=== PATIENT | female | born 1990 | race Hispanic/Latino ===

== ENCOUNTER 2019-09-23 02:32 | Inpatient (IN) | payer MEDICAID, OTHER ==
[~2019-09-23] VITALS: Ht 157.5 cm; Wt 93.4 kg
[2019-09-23] MEDS ORDERED: LACTATED RINGERS 1000ML 1,000 ML IV PRN (03:36)
[2019-09-23 03:43] VITALS: BP 122/85
[2019-09-23] MEDS ORDERED: PREN1TAB80 PO (03:43)
[2019-09-23 04:50] LABS: HEMATOCRIT 37.1 % (36-48); MEAN CORPUSCULAR HEMOGLOBIN 28.1 pg (27.0-33.0); MEAN CORPUSCULAR HGB CONC 33.6 g/dL (32.0-36.0); MEAN CORPUSCULAR VOLUME 83.6 fL (79-99); PLATELET COUNT (AUTO) 210 K/uL (130-400); RED BLOOD CELL COUNT(AUTO) 4.44 MIL/uL (4.00-5.50); RED CELL DISTRIBUTION WIDTH 15.2 % (11.0-15.5); WHITE BLOOD COUNT (AUTO) 8.8 K/uL (4.8-10.8)
[2019-09-23] MEDS ORDERED: OXYTOCIN 10 USP UNITS/ML 20 UNIT in LACTATED RINGERS 1000ML 1,000 ML IV SCH (05:00)
[2019-09-23] MEDS ORDERED: LACTATED RINGERS 1000ML 1,000 ML IV ONE (05:08)
[2019-09-23] MEDS ORDERED: OXYTOCIN-LR 20 UNITS/1000 ML 1,000 ML IV ONE ×2 (05:09→12:08)
[2019-09-23] MEDS ORDERED: LACTATED RINGERS 1000ML 1,000 ML IV SCH (09:30)
[2019-09-23] MEDS ORDERED: CEFAZOLIN SODIUM 1 GM VIAL IVP PRN (09:30)
[2019-09-23] MEDS ORDERED: DURAMORPH PF1 MG/ML 10ML AMP IV ONE (11:09)
[2019-09-23] MEDS ORDERED: FENTANYL CITRATE PF 50 MCG/1 ML 2ML VIAL ONE (11:10)
[2019-09-23] MEDS ORDERED: CEFAZOLIN SODIUM 1 GM VIAL IVP ONE (11:15)
[2019-09-23] MEDS ORDERED: OXYTOCIN 10 USP UNITS/ML ONE (11:35)
[2019-09-23] MEDS ORDERED: ONDANSETRON HCL 4 MG/2 ML VIAL ONE (11:49)
[2019-09-23] MEDS ORDERED: PHENYLEPHRINE HCL 10 MG/ML 1ML VIAL IV ONE (11:57)
[2019-09-23] MEDS ORDERED: EPHEDRINE SULFATE 50 MG/ML AMPULE ONE (12:12)
[2019-09-23] MEDS ORDERED: MEPERIDINE-PF 75 MG/ML SYG IM PRN (12:15)
[2019-09-23] MEDS ORDERED: SODIUM CHLORIDE 0.9% 10 ML VIAL IVP PRN (12:15)
[2019-09-23] MEDS ORDERED: OXYTOCIN-LR 20 UNITS/1000 ML 1,000 ML IV PRN (12:15)
[2019-09-23] MEDS ORDERED: PROMETHAZINE HCL 25 MG/ML 1ML AMPULE IM PRN (12:15)
[2019-09-23] MEDS ORDERED: OXYTOCIN-LR 20 UNITS/1000 ML IV SCH (12:45)
[2019-09-23] MEDS ORDERED: SODIUM CHLORIDE 0.9% 1000ML 1,000 ML IV SCH (12:45)
[2019-09-23] MEDS ORDERED: METHYLERGONOVINE MALEATE 0.2 MG/1 ML ML IM SCH (13:00)
[2019-09-23] MEDS ORDERED: METHYLERGONOVINE MALEATE 0.2 MG/1 ML ML ONE (13:00)
[2019-09-23 14:42] VITALS: BP 130/74
[2019-09-23] MEDS: DEXTROSE 5 %-0.45 % NACL 1,000 ML IV PRN (18:30)
[2019-09-23 19:30] VITALS: BP 124/73
[2019-09-23 23:23] VITALS: BP 113/72
[2019-09-24] MEDS: DEXTROSE 5 %-0.45 % NACL 1,000 ML IV PRN ×2 (01:02→07:17)
[2019-09-24 03:15] VITALS: BP 109/66
[2019-09-24 06:23] LABS: HEMATOCRIT 27.5 % (36-48); MEAN CORPUSCULAR HEMOGLOBIN 27.6 pg (27.0-33.0); MEAN CORPUSCULAR HGB CONC 33.3 g/dL (32.0-36.0); MEAN CORPUSCULAR VOLUME 83.1 fL (79-99); PLATELET COUNT (AUTO) 186 K/uL (130-400); RED BLOOD CELL COUNT(AUTO) 3.31 MIL/uL (4.00-5.50); WHITE BLOOD COUNT (AUTO) 11.1 K/uL (4.8-10.8)
[2019-09-24] MEDS ORDERED: BISACODYL 10 MG SUPP.RECT RC PRN (07:30)
[2019-09-24] MEDS ORDERED: ACETAMINOPHEN EXTRA STRENGTH 500 MG TABLET PO PRN (07:30)
[2019-09-24] MEDS ORDERED: HYDROCODONE/ACETAMINOPHEN 5/325 MG TAB PO PRN (07:30)
[2019-09-24 07:47] VITALS: BP 121/75
[2019-09-24 08:11] LABS: HEPATITIS Bs ANTIGEN SCREEN P Negative (Negative)
--- NOTE | 2019-09-24 08:15 | NUR ---
PATIENT ORIENTED TO PLAN OF CARE AND MORALES CATHETER WAS REMOVED AND DISCARDED 700CC OF CLEAR PALE YELLOW URINE AND NEW BAG OF D5 1/2NS WAS HUNG BY MEDICAL AFFAIRS DIRECTOR AT CHANGE OF SHIFT. ABDOMINAL DRESSING WAS REMOVED AND INCISION WITH INSORBS LEFT OPEN TO AIR. NO DRAINAGE OR EDEMA NOTED TO SITE. PATIENT INSTRUCTED ON CARE OF INCISION DURING SHOWERING AND UPON DISCHARGE. VERBALIZED UNDERSTANDING INSTRUCTIONS GIVEN.
[2019-09-24] MEDS: DOCUSATE SODIUM 100 MG CAP PO SCH ×2 (08:40→20:11)
[2019-09-24] MEDS: IBUPROFEN 600 MG TABLET PO PRN ×3 (08:40→23:49)
[2019-09-24] MEDS: SIMETHICONE 80 MG TAB.CHEW PO PRN ×4 (08:40→20:11)
--- NOTE | 2019-09-24 09:00 | NUR ---
DR. OROZCO ROUNDED AT THIS TIME AND INSTRUCTED PATIENT ON DISCHARGE IN A.M. AND ORDER GIVEN TO DISCHARGE PATIENT IN A.M. ONCE BABY DISCHARGED. PATIENT IS TOLERATING DIET WELL AND ACTIVITY.
[2019-09-24 12:00] VITALS: BP 102/70
--- NOTE | 2019-09-24 13:00 | NUR ---
PATIENT UP AND VOIDED 700CC AND PIV WAS REMOVED AND IV SITE WNL. NO EDEMA OR LEAKAGE NOTED. HAD BEEN TOLERATING DIET WELL AND VOIDING WITHOUT DIFFICULTY.
[2019-09-24 15:46] VITALS: BP 121/69
[2019-09-24 19:20] VITALS: BP 120/72
[2019-09-24] MEDS: ACETAMINOPHEN-CODEINE 300/30MG TAB PO PRN (20:20)
[2019-09-24 23:49] VITALS: BP 121/60
[2019-09-25 03:30] VITALS: BP 110/72
[2019-09-25] MEDS: IBUPROFEN 600 MG TABLET PO PRN ×3 (06:13→18:18)
[2019-09-25 07:35] VITALS: BP 89/56
--- NOTE | 2019-09-25 07:35 | NUR ---
PATIENT ASSESSED AND LOOKS EXHAUSTED. STATES BABY HAS BEEN CRYING NON STOP AND ATTEMPTS TO BREASTFEED AND CONTINUES TO CRY. VERBALIZED NOT GETTING ENOUGH REST. ENCOURAGED PATIENT TO TALK TO NURSERY NURSE ABOUT SUPPLEMENTING SINCE PATIENT FEELS BABY IS NOT GETTING ENOUGH BREASTMILK.
[2019-09-25] MEDS: SIMETHICONE 80 MG TAB.CHEW PO PRN ×4 (08:36→20:37)
[2019-09-25] MEDS: DOCUSATE SODIUM 100 MG CAP PO SCH ×2 (08:36→20:35)
--- NOTE | 2019-09-25 09:35 | NUR ---
SPOKE TO SANGEETA RN FROM NURSERY AND INDICATED BABY NOT GOING HOME DUE TO 10% WEIGHT LOSS. STATES BABY WAS GIVEN 10CC OF FORMULA AND IS NOW RESTING. ENCOURAGED PATIENT TO SLEEP WHILE BABY SLEEPS AND GET SOME REST. STATES NOT HAVING A RIDE UNTIL AFTER 1300.
[2019-09-25 12:00] VITALS: BP 136/78
[2019-09-25] MEDS: ACETAMINOPHEN-CODEINE 300/30MG TAB PO PRN ×3 (12:14→20:34)
[2019-09-25 15:45] VITALS: BP 116/71
--- NOTE | 2019-09-25 16:00 | NUR ---
comfort/safety Pt transferred to room 112 for proximity to nurses station. Pt ambulated with no difficulty
[2019-09-25] MEDS ORDERED: ACETAMINOPHEN-CODEINE 300/30MG TAB ONE (16:16)
[2019-09-25 20:05] VITALS: BP 97/57
--- NOTE | 2019-09-25 21:17 | NUR ---
Patient ambulating to nursery to visit . Steady gait noted and pt in no apparent distress. Addendum: 09/25/19 at 2119 by BRIONNA MENDOZA RN RN Amended: Links added.
--- NOTE | 2019-09-25 22:00 | NUR ---
Patient returned to room from nursery. Fresh ice water provided and encouraged patient to rest. Patient states that the Tylenol #3 has helped with her discomfort. Patient voices no concerns at this time.
--- NOTE | 2019-09-26 00:12 | NUR ---
Patient effectively hand expressing breastmilk at this time. Will return at later time to assess patient and take vital signs Addendum: 09/26/19 at 0013 by BRIONNA MENDOZA RN RN Amended: Links added.
[2019-09-26 00:45] VITALS: BP 134/67
--- NOTE | 2019-09-26 00:54 | NUR ---
Patient done with hand expressing of breastmilk. Assisted patient in putting on abdominal binder. Patient ambulated to nursery to visit her baby. Steady gait noted.
[2019-09-26] MEDS: IBUPROFEN 600 MG TABLET PO PRN ×2 (01:24→11:55)
--- NOTE | 2019-09-26 01:30 | NUR ---
Patient back in room from visiting baby in nursery. Patient given Motrin as requested. Medication use and possible se explained. Freh ice water provided. Lights dimmed and patient allowed to rest. Addendum: 09/26/19 at 0132 by BRIONNA MENDOZA RN RN Amended: Links added.
[2019-09-26 04:15] VITALS: BP 104/66
--- NOTE | 2019-09-26 06:10 | NUR ---
Patient ambulating in hallway to nursery. Patient smiling and in no apparent distress. Addendum: 09/26/19 at 0611 by BRIONNA MENDOZA RN RN Amended: Links added.
--- NOTE | 2019-09-26 06:20 | NUR ---
Patient returned to room. No signs of distress noted and patient voices no concerns at this time.
--- NOTE | 2019-09-26 07:15 | NUR ---
Report to Daina Bermudez RN
[2019-09-26] MEDS: ACETAMINOPHEN-CODEINE 300/30MG TAB PO PRN (08:50)
[2019-09-26] MEDS: DOCUSATE SODIUM 100 MG CAP PO SCH (08:51)
[2019-09-26 09:01] VITALS: BP 109/68
[2019-09-26 11:00] VITALS: BP 118/72
--- NOTE | 2019-09-26 14:50 | NUR ---
PT STABLE IN NO APPARENT DISTRESS. DISCHARGED HOME BABY IN ARMS VIA WHEELCHAIR. ASSISTED TO PRIVATE CAR BY Cristi CLARKE CST. Addendum: 09/26/19 at 1452 by CAROLINA MILNER RN RN Amended: Links added.
== END 2019-09-26 14:35 | disposition home or self-care (01) | DRG 788 ==
LOC: EDH 02:32 → OBSVTOIN 02:33 → LDH 02:33 → WSH 14:40 → UNDODISIN 09-25 12:35 → WSH 09-25 15:56
PROVIDERS: ADMIT Specialist; ATTEND Specialist
PROC: 10D00Z1 Extraction of Products of Conception, Low, Open Approach (ICD-10-PCS; principal; 2019-09-23 11:00)
DX: O34.43 Maternal care for other abnormalities of cervix, third trimester (principal); D49.59 Neoplasm of unspecified behavior of other genitourinary organ; O69.1XX0 Labor and delivery complicated by cord around neck, with compression, not applicable or unspecified; O16.4 Unspecified maternal hypertension, complicating childbirth; O24.92 Unspecified diabetes mellitus in childbirth; Z37.0 Single live birth; Z3A.39 39 weeks gestation of pregnancy
CPT/HCPCS: 36415; 59510; 76817; 85014; 85018; 85027; 86592; 86850; 86900; 86901; 87340; A4344; G0378; J0690; J2210; J2274; J2370; J2405; J2590; J3010; J3490; J7120